=== PATIENT | male | born 1980 | race Caucasian/White ===

== ENCOUNTER 2023-12-01 13:35 | Emergency (ER) | payer OTHER, SELFPAY ==
[2023-12-01 13:50] VITALS: BP 134/83
[2023-12-01 14:21] LABS: % Basophils 0.3 % (0-2); % Eosinophils 0.3 % (0-6); % Immature Granulocytes 0.6 % (0-0.5); % Lymphocytes 11.6 % (20.5-51.1); % Monocytes 6.2 % (1.7-9.3); Absolute Immature Granulocytes 0.1 10^3/uL (0-0.05); Absolute Lymphocytes 1.5 10^3/uL (1.2-3.4); Absolute Monocytes 0.8 10^3/uL (0.1-0.6); Absolute Neutrophils 10.3 10^3/uL (1.4-6.5); Hematocrit 41.7 % (39.0-52.0); Hemoglobin 14.4 g/dL (13.0-18.0); Mean Corp Hgb Conc. 34.5 g/dL (33.0-37.0); Mean Corpuscular Hgb 29.3 pg (27.0-31.0); Mean Corpuscular Volume 84.9 fL (80.0-94.0); Mean Platelet Volume 8.7 fL (7.4-10.4); Nucleated Red Blood Cells % 0 % (-); Platelet Count 281 10^3/uL (130-400); Red Blood Cell Count 4.91 10^6/uL (4.70-6.10); White Blood Cell Count 12.7 10^3/uL (4.8-10.8)
[2023-12-01 14:27] LABS: Urine Albumin Negative (Neg - Trace); Urine Bilirubin Negative (Negative); Urine Character Clear (Clear); Urine Color Yellow; Urine Glucose Negative (Negative); Urine Ketone Trace (Negative); Urine Leukocyte Negative (Negative); Urine Nitrite Negative (Negative); Urine Occult Blood 1+ (Negative); Urine Specific Gravity 1.015 (<1.030); Urine Urobilinogen Negative (Neg - 1+)
[2023-12-01 14:33] LABS: ALT (SGPT) 29 U/L (0-50); AST (SGOT) 26 U/L (17-59); Albumin 4.7 g/dl (3.5-5.0); Alkaline Phosphatase 87 U/L (38-126); Blood Urea Nitrogen 17 mg/dl (9-20); Calcium 9.7 mg/dl (8.4-10.2); Carbon Dioxide 25 mmol/L (22-30); Chloride 102 mmol/L (98-107); Glucose 100 mg/dl (70-99); Potassium 4.3 mmol/L (3.5-5.1); Sodium 135 mmol/L (135-145); Total Bilirubin 1.6 mg/dl (0.2-1.3); Total Protein 7.2 g/dl (6.3-8.2); eGFR > 60.00
[2023-12-01] MEDS: MOTRIN 600 MG PO (15:12)
[2023-12-01 15:16] VITALS: BP 134/87
[2023-12-01 15:21] VITALS: BMI 25.6
[2023-12-01 15:22] VITALS: BP 134/87
--- NOTE | 2023-12-01 15:42 | ED.GENMED ---
History of Present Illness
General
Chief Complaint: Flank Pain
Time Seen by Provider: 12/01/23 14:33
History of Present Illness
History of Present Illness:
42 yo male present emergency department for evaluation of left flank pain developing this morning. Went to urgent care where he was noted to have microscopic hematuria and was sent to the emergency department for further evaluation. No fevers,
chills, sweats, nausea, vomiting, or diarrhea. Patient had no history of abdominal surgeries. Pain waxes and wanes, at maximum is rated 7 and 10, currently rated 3 out of 10. No history of kidney stones
Review of Systems
Review of Systems
Allergies reviewed?: Yes
All Other Systems: ROS reviewed and negative except as documented in HPI and ROS
Phy Exam
Physical Exam
Physical Exam:
GEN: Well appearing, NAD, WDWN
HEENT: Oral mucosa moist, no scleral icterus
Cardiac: Regular rate
Lung: No respiratory distress, no tachypnea
Abdomen: Soft, nontender, no CVA tenderness
MSK: No gross deformity or injuries
Skin: Good color, no pallor or jaundice, no rashes
Neuro: AO x3, moves all extremities freely
Psych: Calm, cooperative
Course
Orders/Labs/Results
Orders:
Orders
12/01/23 14:04
Complete Blood Count/With Diff Urgent
Comprehensive Metabolic Panel Urgent
Urinalysis Reflex To Culture Urgent
Date Specimen was Collected: 12/01/23
Time Specimen was Collected: 13:55
Urine Microscopic Reflex Cult Urgent
12/01/23 14:35
Ibuprofen [Motrin] 600 mg PO NOW STA
12/01/23 14:38
CT Abd/pel Without Iv Or Oral Urgent
Comment:
Reason For Exam: L flank pain
Abnormal Lab Results
12/01/23
14:04
WBC 12.7 H 10^3/uL
(4.8-10.8)
Abs Immat Gran (auto) 0.1 H 10^3/uL
(0-0.05)
Absolute Neuts (auto) 10.3 H 10^3/uL
(1.4-6.5)
Absolute Monos (auto) 0.8 H 10^3/uL
(0.1-0.6)
Immature Gran % 0.6 H %
(0-0.5)
Neutrophils % 81.0 H %
(42.2-75.2)
Lymphocytes % 11.6 L %
(20.5-51.1)
Glucose 100 H mg/dl
(70-99)
Total Bilirubin 1.6 H mg/dl
(0.2-1.3)
Urine Ketones Trace A
(Negative)
Ur Occult Blood Reflex 1+ A
(Negative)
12/01/23 14:04
12/01/23 14:04
Vital Signs
Initial and Last Documented VS:
Initial Vital Signs
Temp Pulse Resp BP Pulse Ox
98.8 F 62 18 134/83 99
12/01/23 13:50 12/01/23 13:50 12/01/23 13:50 12/01/23 13:50 12/01/23 13:50
Last Documented Vital Signs
Temp Pulse Resp BP Pulse Ox
98.8 F 64 16 134/87 98
12/01/23 13:50 12/01/23 15:22 12/01/23 15:22 12/01/23 15:22 12/01/23 15:22
*Critical Care Note
Total Time (30-74mins, 75-104mins- exclusive of procedures): Not Applicable
ED Attending Note
-
Portions of this chart may have been created with voice recognition software.� Occasional wrong word or��sound alike� substitutions may have occurred due to the inherent limitations of voice recognition software.
Discharge Plan
Departure
Patient Disposition: Home (Routine Discharge)
Date of Disposition: 12/01/23
Time of Disposition: 16:03
Patient with high blood pressure during this ER visit?: No
Discharge Problem:
Acute left flank pain
Instructions: Flank Pain (DC)
Referrals:
Quynh Power CRNP [Family Provider] -
Activity Restrictions/Additional Instructions:
I suspect you passed a small kidney stone based on your pain and small amount of blood in the urine, however your CT shows no sign of a stone. Please take ibuprofen or tylenol for any continued pain
Interventions
Interventions:
*Risk Screen - Suicide Last Done: 12/01/23 15:23
*General Assessment Last Done: 12/01/23 13:51
*Neglect/Abuse Screening Last Done: 12/01/23 15:23
ED- Fall Risk Assessment Last Done: 12/01/23 15:25
*ED COVID-19 Vaccine History Last Done: 12/01/23 13:51
CZ-Srejqb-Hboqgrsoat Assessment Last Done: 12/01/23 15:25
ED-Male Genitourinary Assessment Last Done: 12/01/23 15:25
Discharge Date and Time
Print Language: SLOVENIAN
[2023-12-01 16:27] LABS: Urine Red Blood Cell 0-2 /HPF (0-2); Urine White Cell 0-2 /HPF (0-5)
== END 2023-12-01 16:49 | disposition home or self-care (01) ==
LOC: EMR 13:35
PROVIDERS: Emergency Medicine; EMERGENCY PHYSICIAN Emergency Medicine; FAMILY PHYSICIAN Nurse Practitioner Family
DX: R10.9 Unspecified abdominal pain (principal)
CPT/HCPCS: 99284; 74176; 80053; 81003; 81015; 85025